=== PATIENT | male | born 1995 | race Caucasian/White ===

== ENCOUNTER 2019-06-25 10:14 | Emergency (ER) | payer MEDICAID ==
[~2019-06-25] VITALS: Ht 180.3 cm; Wt 54.4 kg
[2019-06-25 10:21] VITALS: BP 113/66
[2019-06-25 10:55] LABS: EOSINOPHILS % (AUTO) 0.4 % (0.0-6.0); HEMATOCRIT 41 % (39-51); HEMOGLOBIN 14.4 g/dL (13.5-17.5); LYMPHOCYTES # (AUTO) 0.6 /CMM (0.8-4.8); LYMPHOCYTES % (AUTO) 20.7 % (20.0-44.0); MEAN CORPUSCULAR HGB CONC 35 g/dl (31.0-36.0); MEAN CORPUSCULAR VOLUME 89 fL (80-96); MONOCYTES # (AUTO) 0.2 /CMM (0.1-1.30); MONOCYTES % (AUTO) 8.9 % (2.0-12.0); NEUTROPHILS # (AUTO) 1.9 /CMM (1.8-8.9); PLATELET COUNT (AUTO) 166 /CMM (150-450); RED BLOOD CELL COUNT(AUTO) 4.67 MIL/uL (4.5-6.0); WHITE BLOOD COUNT (AUTO) 2.7 K/uL (4.3-11.0)
--- NOTE | 2019-06-25 11:00 | NUR ---
PT CAME INTO THE ED C/O BACK OF HEAD AND UPPER BACK PAIN X 5 DAYS, MOVED BOXES OVER THE WEEKEND. AAOX4, VSS, BREATHING EVEN AND UNLABORED ON TOOM AIR W/ NAD NOTED. PT CONNECTED TO THE MONITOR AND POX.
[2019-06-25 11:05] LABS: CARBON DIOXIDE 28 mmol/L (21-32); CHLORIDE 97 mmol/L (98-107); CREATININE 0.5 mg/dL (0.6-1.3); GLUCOSE 95 mg/dL (74-106); POTASSIUM 3.6 mmol/L (3.5-5.1); SODIUM SERUM 131 mmol/L (136-145); UREA NITROGEN, BLOOD 8 mg/dL (7-18)
[2019-06-25 11:11] LABS: ALANINE AMINOTRANSFERASE 20 U/L (12-78); ALBUMIN 4.1 g/dL (3.4-5.0); ALKALINE PHOSPHATASE 108 U/L (46-116); ASPARTATE AMINOTRANSFERASE 17 U/L (15-37); BILIRUBIN,DIRECT 0.2 mg/dL (0.0-0.2); BILIRUBIN,TOTAL 0.6 mg/dL (0.2-1.0); TOTAL PROTEIN, SERUM 7.1 g/dL (6.4-8.2)
--- NOTE | 2019-06-25 11:44 | NUR ---
Patient discharged to home in stable condition. Written and verbal after care instructions given. Patient verbalizes understanding of instruction.
== END 2019-06-25 11:45 | disposition home or self-care (01) ==
LOC: ER 10:18
DX: M54.10 Radiculopathy, site unspecified (principal); M25.512 Pain in left shoulder; F10.10 Alcohol abuse, uncomplicated; Y90.9 Presence of alcohol in blood, level not specified
CPT/HCPCS: 36415; 71045-TC; 80048-TC; 80076-TC; 84484-TC; 85025-TC

== ENCOUNTER 2019-06-29 11:43 | Emergency (ER) | payer SELFPAY ==
[~2019-06-29] VITALS: Ht 180.3 cm; Wt 52.6 kg
--- NOTE | 2019-06-29 12:23 | NUR ---
Pt came into the ed c/o anxiety, "i cant get myself healthy." for couple of months. Pt aaox4, vss, breathing even and unlabored on room air w/ nad noted. Pt connected to the monitor and pox.
[2019-06-29] MEDS ORDERED: ONDANSETRON HCL/PF 4 MG/2 ML VIAL ONE (12:40)
[2019-06-29 12:45] LABS: EOSINOPHILS % (AUTO) 0.4 % (0.0-6.0); HEMATOCRIT 40 % (39-51); HEMOGLOBIN 14.1 g/dL (13.5-17.5); LYMPHOCYTES # (AUTO) 0.8 /CMM (0.8-4.8); LYMPHOCYTES % (AUTO) 27.8 % (20.0-44.0); MEAN CORPUSCULAR HGB CONC 36 g/dl (31.0-36.0); MEAN CORPUSCULAR VOLUME 88 fL (80-96); MONOCYTES # (AUTO) 0.4 /CMM (0.1-1.30); MONOCYTES % (AUTO) 11.7 % (2.0-12.0); NEUTROPHILS # (AUTO) 1.8 /CMM (1.8-8.9); NEUTROPHILS % (AUTO) 59.1 % (43.0-81.0); PLATELET COUNT (AUTO) 183 /CMM (150-450); RED BLOOD CELL COUNT(AUTO) 4.52 MIL/uL (4.5-6.0)
[2019-06-29 12:52] LABS: CALCIUM, SERUM 8.7 mg/dL (8.5-10.1); CARBON DIOXIDE 23 mmol/L (21-32); CHLORIDE 96 mmol/L (98-107); CREATININE 0.5 mg/dL (0.6-1.3); GLUCOSE 135 mg/dL (74-106); POTASSIUM 3.5 mmol/L (3.5-5.1); SODIUM SERUM 131 mmol/L (136-145); UREA NITROGEN, BLOOD 9 mg/dL (7-18)
[2019-06-29 12:57] LABS: ALANINE AMINOTRANSFERASE 20 U/L (12-78); ALCOHOL, BLOOD < 3 mg/dL (0-0); ALKALINE PHOSPHATASE 102 U/L (46-116); ASPARTATE AMINOTRANSFERASE 16 U/L (15-37); BILIRUBIN,DIRECT 0.2 mg/dL (0.0-0.2); BILIRUBIN,TOTAL 0.9 mg/dL (0.2-1.0); TOTAL PROTEIN, SERUM 7.1 g/dL (6.4-8.2)
[2019-06-29] MEDS ORDERED: IV NS 0.9% 1,000 ML BAG IV ONE (13:00)
[2019-06-29] MEDS ORDERED: ONDANSETRON HCL/PF 4 MG/2 ML VIAL IVP ONE (13:00)
[2019-06-29 13:01] LABS: ACETAMINOPHEN 0 ug/ml (10-30); SALICYLATE < 0.2 mg/dL (2.8-20.0)
--- NOTE | 2019-06-29 14:00 | NUR ---
Social service consult requested by Dr. Putnam for pt. requesting resources for inpatient bed for eating disorders. Per chart review and MD notes, pt, history of eating disorder and anxiety who presented to the emergency room hoping to get an inpatient bed. Patient has had increase in his panic attacks and he feels like his eating disorder is out of control. Patient does not vomit but he does restrict his eating. Patient complains of feeling weak all over. DIRECTOR AND PROFESSOR met with the pt. bedside. Pt. is alert and oriented x 4. Pt appears to be a little anxious. Pt's mood is congruent. Pt. 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 Pt. expressed having muscle fatigue for the past week. Pt. reported as being anorexic in the past but now is restrictive eating. Pt. was at an eating disorder program 10 years ago in [place]. Pt. resides with his roommate Arnold. Pt's roommate Arnold and friend Moisés joined pt. bedside. Pt gave DIRECTOR AND PROFESSOR permission to speak to Arnold and Moisés regarding his plan of care. [facility] provided pt with active listening, supportive counseling and positive coping skills. [facility] also gave pt. the contact information to [facility] in [facility] [place] and encouraged pt. to apply for [employer] as soon as possible, since he will need it to get into any inpatient or outpatient program. Pt was given list of Eating Disorder Resources which included, hotlines, inpatient and outpatient treatment. No other social service needs are requested at this time. [facility] updated Dr. Putnam with aforementioned information and pt's discharge plan.
[2019-06-29 14:01] VITALS: BP 112/67
--- NOTE | 2019-06-29 14:01 | NUR ---
Patient discharged to home in stable condition. Written and verbal after care instructions given. Patient verbalizes understanding of instruction.IV removed. Catheter intact and site benign. Pressure and 4x4 applied to site. No bleeding noted.
== END 2019-06-29 14:01 | disposition home or self-care (01) ==
LOC: ER 11:45
DX: R63.0 Anorexia (principal); F41.9 Anxiety disorder, unspecified
CPT/HCPCS: 36415; 80048; 80076; 80305; 80307; 80329; 85025; 96374; 99284; G0480; J2405; J7030